=== PATIENT | female | born 2000 | race Two or more races ===

== ENCOUNTER 2024-12-01 19:00 | Inpatient (IN) | payer OTHER ==
[~2024-12-01] VITALS: Ht 154.9 cm; Wt 78.5 kg
[2024-12-01 18:12] VITALS: BP 142/92
[2024-12-01 19:12] VITALS: BP 140/100
[2024-12-01 19:15] VITALS: BP 138/98
[2024-12-01] MEDS ORDERED: RINGERS SOLUTION,LACTATED 1,000 ML IV SCH (19:15)
[2024-12-01] MEDS ORDERED: PRENATAL TABLE1 EAC1 (19:39)
[2024-12-01] MEDS ORDERED: CHILDREN'S ASPI81 MG (19:39)
[2024-12-01] MEDS ORDERED: SYNTHROID137 MCG (19:40)
[2024-12-01 20:18] LABS: URINE APPEARANCE Clear; URINE BILIRRUBIN Negative (NEGATIVE); URINE BLOOD Negative; URINE COLOR Yellow; URINE GLUCOSE Negative (NEGATIVE); URINE KETONE Negative (NEGATIVE); URINE LEUKOCYTE Small; URINE NITRATE Negative; URINE PROTEIN Negative (NEGATIVE); URINE UROBILINOGEN 0.2 E.U./dl
[2024-12-01 20:19] LABS: HEMATOCRIT 40.8 % (36.0-45.00); HEMOGLOBIN 13.9 g/dL (12.0-15.00); MEAN CELL VOLUME 85.3 fL (80.00-100.00); PLATELET COUNT 233 K/uL (150-450); RED BLOOD COUNT 4.78 M/uL (4.00-6.00); RED CELL DISTRIBUTION WIDTH 14.3 % (11.5-14.5)
[2024-12-01 20:21] VITALS: BP 135/85
[2024-12-01 20:21] LABS: URINE BACTERIA 1082.9 uL (0.0-1933); URINE EPITHELIAL CELLS 18.9 uL (0.0-38.8); URINE WBC 65.2 uL (0.0-23.2)
[2024-12-01 20:37] LABS: URINE CAST 0.73 uL (0.0-1.40)
[2024-12-01 20:46] LABS: INR < 0.93; PARTIAL THROMBOPLASTIN TIME 27.9 SECONDS (22.0-34.0); PROTHROMBIN TIME 10.1 SECONDS (9.0-11.5)
[2024-12-01 20:59] LABS: ALBUMIN 2.7 gm/dL (3.4-5.0); BILIRUBIN TOTAL 0.7 mg/dL (0.3-1.2); CALCIUM 8.8 mg/dL (8.5-10.1); CREATININE SERUM 0.91 mg/dL (0.55-1.02); GFR 76.61; GLOBULINA 3.2 G/DL (2.4-3.5); POTASSIUM 4.34 mEq/L (3.5-5.1); TOTAL PROTEIN 5.9 gm/dL (6.4-8.2)
[2024-12-01 21:12] VITALS: BP 128/88
[2024-12-01 23:17] VITALS: BP 132/82
[2024-12-02] VITALS (10 sets, daily range): BP systolic 108–155; BP diastolic 59–87; O2SAT 98
[2024-12-02 11:55] LABS: ALBUMIN 2.4 gm/dL (3.4-5.0); BILIRUBIN TOTAL 0.74 mg/dL (0.3-1.2); CALCIUM 8.8 mg/dL (8.5-10.1); CREATININE SERUM 0.88 mg/dL (0.55-1.02); GFR 79.63; POTASSIUM 3.9 mEq/L (3.5-5.1); TOTAL PROTEIN 5.4 gm/dL (6.4-8.2)
[2024-12-02] MEDS ORDERED: OXYTOCIN 500 ML IV SCH (15:15)
[2024-12-02] MEDS ORDERED: MORPHINE SULFATE 4 MG/ML CARTRIDGE IV ONE (17:00)
[2024-12-02] MEDS ORDERED: ERYTHROMYCIN BASE OPHT 1GM EACH TUBE OP ONE ×2 (17:04→23:15)
[2024-12-02] MEDS ORDERED: CHLORHEXIDINE GLUCONATE 120 ML BOTTLE TOP ONE ×2 (17:05→23:15)
[2024-12-02] MEDS ORDERED: OXYTOCIN 20 UNITS/1000ML RL PIGGYBAG IV ONE (17:05)
[2024-12-02] MEDS ORDERED: LIDOCAINE HCL 1% 10ML VIAL ONE (17:05)
[2024-12-02] MEDS ORDERED: MORPHINE SULFATE 4 MG/ML VIAL IV ONE (23:15)
[2024-12-02] MEDS ORDERED: OXYTOCIN 20 UNITS/1000ML RL PIGGYBAG IV SCH (23:15)
[2024-12-02] MEDS ORDERED: LIDOCAINE HCL 1% 10ML VIAL IJ ONE (23:15)
[2024-12-02] MEDS ORDERED: POVIDONE-IODINE 118 ML BOTT TOP ONE (23:45)
[2024-12-03] MEDS ORDERED: IBUprofen 800 MG TABLET PO SCH (00:15)
[2024-12-03] MEDS ORDERED: MORPHINE SULFATE 4 MG/ML VIAL IV ONE (01:40)
[2024-12-03] MEDS ORDERED: OXYTOCIN 10 UNITS/ML VIAL ONE (03:14)
[2024-12-03 03:57] VITALS: BP 126/80
[2024-12-03] MEDS ORDERED: KETOROLAC TROMETHAMINE 60 MG VIAL IM ONE (04:00)
[2024-12-03 07:49] VITALS: BP 129/81
[2024-12-03 08:05] LABS: HEMATOCRIT 32.2 % (36.0-45.00); MEAN CELL VOLUME 86.4 fL (80.00-100.00); MEAN CORPUSCULAR HEMOGLOBIN 29.4 pg (27.00-32.0); PLATELET COUNT 258 K/uL (150-450); RED BLOOD COUNT 3.73 M/uL (4.00-6.00); RED CELL DISTRIBUTION WIDTH 14.4 % (11.5-14.5)
[2024-12-03 17:18] VITALS: BP 122/79
[2024-12-04 00:04] VITALS: BP 140/80
[2024-12-04 05:07] VITALS: BP 121/86
[2024-12-04 08:00] VITALS: BP 135/79
== END 2024-12-04 17:12 | disposition home or self-care (01) | DRG 807 ==
LOC: OB/GYN 19:00 → LDR 19:00 → OB/GYN 12-03 00:25
PROVIDERS: Student in an Organized Health Care Education/Training Program; ADMIT Specialist; ATTEND Specialist
PROC: 4A1HXCZ Monitoring of Products of Conception, Cardiac Rate, External Approach (ICD-10-PCS; 2024-12-01)
PROC: 10E0XZZ Delivery of Products of Conception, External Approach (ICD-10-PCS; principal; 2024-12-02 22:00)
PROC: 0UQG7ZZ Repair Vagina, Via Natural or Artificial Opening (ICD-10-PCS; 2024-12-03)
DX: O71.4 Obstetric high vaginal laceration alone (principal); Z37.0 Single live birth; O13.4 Gestational [pregnancy-induced] hypertension without significant proteinuria, complicating childbirth; Z3A.38 38 weeks gestation of pregnancy